=== PATIENT | male | born 1975 | race Caucasian/White ===

== ENCOUNTER 2019-11-26 12:34 | Emergency (ER) | payer MEDICAID ==
--- NOTE | 2019-11-26 12:58 | EDM.PDOC ---
ED HPI GENERAL MEDICAL PROBLEM - General Chief Complaint: Chest Pain Stated Complaint: CHEST PAIN, NUMBNESS IN HANDS AND FEET Time Seen by Provider: 11/26/19 12:54 Source of Information: Reports: Patient History Limitations: Reports: No Limitations - History of Present Illness INITIAL COMMENTS - FREE TEXT/NARRATIVE: pt arrived with pain on both sides when he takes a deep breath. Pt fell shortly after marquise ans he has had some numbness in his feet and pain in his lower back . he now hurts when he takes a deep breath. pt took aspirin 500 mg at home as he usually does each day. He has not taken any meds for nearly 1 year. He has no insurance so he can,t get his meds. Onset: Other ( started on . ) Duration: Hour(s): Location: Reports: Chest, Back Associated Symptoms: Reports: Chest Pain, Shortness of Breath, Weakness, Other ( tingling in his legs. ) Chest Pain Score (Numeric/FACES): 6 - Related Data Allergies Allergy/AdvReac Type Severity Reaction Status Date / Time No Known Allergies Allergy Verified 11/26/19 12:46 Home Meds: Home Meds Aspirin 500 mg PO DAILY 11/26/19 [History] Carvedilol [Coreg] 3.125 mg PO DAILY 11/26/19 [History] Clopidogrel [Plavix] 75 mg PO DAILY 11/26/19 [History] Insulin Aspart [NovoLOG] 8 unit SQ WITHMEALSANDBED 11/26/19 [History] Insulin Glargine,Hum.Rec.Anlog [Basaglar Kwikpen U-100] 1 unit SQ ASDIRECTED [History] Levothyroxine 75 mcg PO ACBREAKFAST 11/26/19 [History] Lisinopril [Zestril] 10 mg PO DAILY 11/26/19 [History] atorvaSTATin [Lipitor] 20 mg PO BEDTIME 11/26/19 [History] ED ROS GENERAL - Review of Systems Review Of Systems: See Below Constitutional: Reports: No Symptoms HEENT: Reports: No Symptoms Respiratory: Reports: Shortness of Breath, Other (pain with deep breathing. ) Cardiovascular: Reports: Chest Pain, Other (hurts when he takes a deep breath. ) Endocrine: Reports: High Glucose GI/Abdominal: Reports: No Symptoms : Reports: No Symptoms Musculoskeletal: Reports: Neck Pain, Back Pain, Muscle Stiffness Skin: Reports: No Symptoms Neurological: Reports: Tingling, Other (pt has completely numb feet. ) Psychiatric: Reports: Depression, Other (pt has no health insurance and he has been of of his meds for about 1 year. ) Hematologic/Lymphatic: Reports: No Symptoms Free Text/Narrative/Comment: past medical history he has had a stent coronary, he has been out of his meds and not using them for 1 year as he has no insurance. He has a past history of cheema chritian disease. He is hypothyroid, diabetic and in the past was on Insulin, he had a fall about 3 weeks ago. The only med he has had recently is asa 500 mg daily. ED EXAM, GENERAL - Physical Exam Exam: See Below Free Text/Narrative:: pt is having pain in his chest when he takes a deep breath. He has not had his meds since January. He did fall shortly after Marquise. he has gotten weaker recently and he has had pain in his neck and lower back. Exam Limited By: No Limitations General Appearance: Alert, Anxious, Mild Distress Ears: Normal TMs Nose: Normal Inspection Throat/Mouth: Normal Inspection Head: Atraumatic Neck: Normal Inspection Respiratory/Chest: Other (pt is very weak and with activity he does get sob. ) Cardiovascular: Regular Rate, Rhythm GI/Abdominal: Soft, Non-Tender (Male) Exam: Deferred Rectal (Males) Exam: Deferred Back Exam: Normal Inspection Extremities: Normal Inspection Neurological: Alert, Oriented, Normal Cognition Course - Vital Signs Last Recorded V/S: Last Vital Signs Temp 37.1 C 11/26/19 13:28 Pulse 86 11/26/19 16:43 Resp 14 11/26/19 16:08 BP 143/97 H 11/26/19 17:06 Pulse Ox 94 L 11/26/19 16:43 - Orders/Labs/Meds Labs: Laboratory Tests 11/26/19 11/26/19 11/26/19 Range/Units 12:12 12:20 12:20 WBC (4.5-11.0) K/uL RBC (4.30-5.90) M/uL Hgb (12.0-15.0) g/dL Hct (40.0-54.0) % MCV (80-98) fL MCH (27-31) pg MCHC (32-36) % Plt Count (150-400) K/uL Neut % (Auto) (36-66) % Lymph % (Auto) (24-44) % Porter % (Auto) (2-6) % Eos % (Auto) (2-4) % Baso % (Auto) (0-1) % D-Dimer, Quantitative < 100 (0.0-400.0) ng/mL Sodium (140-148) mmol/L Potassium (3.6-5.2) mmol/L Chloride (100-108) mmol/L Carbon Dioxide (21-32) mmol/L Anion Gap (5.0-14.0) mmol/L BUN (7-18) mg/dL Creatinine (0.8-1.3) mg/dL Est Cr Clr Drug Dosing mL/min Estimated GFR (MDRD) (>60) Glucose (74-106) mg/dL Calcium (8.5-10.1) mg/dL Total Bilirubin (0.2-1.0) mg/dL AST (15-37) U/L ALT (12-78) U/L Alkaline Phosphatase (46-116) U/L Troponin I (0.000-0.056) ng/mL C-Reactive Protein 0.18 (0.0-0.3) mg/dL NT-Pro-B Natriuret Pep 25 (5-125) pg/mL Total Protein (6.4-8.2) g/dL Albumin (3.4-5.0) g/dL Globulin (2.3-3.5) g/dL Albumin/Globulin Ratio (1.2-2.2) TSH, Ultra Sensitive (0.358-3.740) uIU/mL Urine Color (YELLOW) Urine Appearance (CLEAR) Urine pH (5.0-8.0) Ur Specific [place] (1.008-1.030) Urine Protein (NEGATIVE) mg/dL Urine Glucose (UA) (NEGATIVE) mg/dL Urine Ketones (NEGATIVE) mg/dL Urine Occult Blood (NEGATIVE) Urine Nitrite (NEGATIVE) Urine Bilirubin (NEGATIVE) Urine Urobilinogen (0.2-1.0) EU/dL Ur Leukocyte Esterase (NEGATIVE) Urine RBC (0-5) Urine WBC (0-5) Ur Epithelial Cells Amorphous Sediment Urine Bacteria Urine Mucus Urine Opiates Screen (NEGATIVE) Ur Oxycodone Screen (NEGATIVE) Urine Methadone Screen (NEGATIVE) Ur Propoxyphene Screen (NEGATIVE) Ur Barbiturates Screen (NEGATIVE) Ur Tricyclics Screen (NEGATIVE) Ur Phencyclidine Scrn (NEGATIVE) Ur Amphetamine Screen (NEGATIVE) U Methamphetamines Scrn (NEGATIVE) Urine MDMA Screen (NEGATIVE) U Benzodiazepines Scrn (NEGATIVE) U Cocaine Metab Screen (NEGATIVE) U Marijuana (THC) Screen (NEGATIVE) 11/26/19 11/26/19 11/26/19 Range/Units 12:53 12:53 12:53 WBC 7.6 (4.5-11.0) K/uL RBC 5.56 (4.30-5.90) M/uL Hgb 15.5 H (12.0-15.0) g/dL Hct 44.0 (40.0-54.0) % MCV 79 L (80-98) fL MCH 28 (27-31) pg MCHC 35 (32-36) % Plt Count 249 (150-400) K/uL Neut % (Auto) 64 (36-66) % Lymph % (Auto) 30 (24-44) % Porter % (Auto) 6 (2-6) % Eos % (Auto) 0 L (2-4) % Baso % (Auto) 0 (0-1) % D-Dimer, Quantitative (0.0-400.0) ng/mL Sodium 128 L (140-148) mmol/L Potassium 3.4 L (3.6-5.2) mmol/L Chloride 89 L (100-108) mmol/L Carbon Dioxide 28 (21-32) mmol/L Anion Gap 14.4 H (5.0-14.0) mmol/L BUN 11 (7-18) mg/dL Creatinine 1.3 (0.8-1.3) mg/dL Est Cr Clr Drug Dosing 59.57 mL/min Estimated GFR (MDRD) > 60 (>60) Glucose 469 H* (74-106) mg/dL Calcium 9.4 (8.5-10.1) mg/dL Total Bilirubin 0.7 (0.2-1.0) mg/dL AST 70 H (15-37) U/L ALT 97 H (12-78) U/L Alkaline Phosphatase 218 H (46-116) U/L Troponin I < 0.017 (0.000-0.056) ng/mL C-Reactive Protein (0.0-0.3) mg/dL NT-Pro-B Natriuret Pep (5-125) pg/mL Total Protein 8.5 H (6.4-8.2) g/dL Albumin 3.7 (3.4-5.0) g/dL Globulin 4.8 H (2.3-3.5) g/dL Albumin/Globulin Ratio 0.8 L (1.2-2.2) TSH, Ultra Sensitive (0.358-3.740) uIU/mL Urine Color (YELLOW) Urine Appearance (CLEAR) Urine pH (5.0-8.0) Ur Specific [place] (1.008-1.030) Urine Protein (NEGATIVE) mg/dL Urine Glucose (UA) (NEGATIVE) mg/dL Urine Ketones (NEGATIVE) mg/dL Urine Occult Blood (NEGATIVE) Urine Nitrite (NEGATIVE) Urine Bilirubin (NEGATIVE) Urine Urobilinogen (0.2-1.0) EU/dL Ur Leukocyte Esterase (NEGATIVE) Urine RBC (0-5) Urine WBC (0-5) Ur Epithelial Cells Amorphous Sediment Urine Bacteria Urine Mucus Urine Opiates Screen (NEGATIVE) Ur Oxycodone Screen (NEGATIVE) Urine Methadone Screen (NEGATIVE) Ur Propoxyphene Screen (NEGATIVE) Ur Barbiturates Screen (NEGATIVE) Ur Tricyclics Screen (NEGATIVE) Ur Phencyclidine Scrn (NEGATIVE) Ur Amphetamine Screen (NEGATIVE) U Methamphetamines Scrn (NEGATIVE) Urine MDMA Screen (NEGATIVE) U Benzodiazepines Scrn (NEGATIVE) U Cocaine Metab Screen (NEGATIVE) U Marijuana (THC) Screen (NEGATIVE) 11/26/19 11/26/19 11/26/19 Range/Units 12:58 13:15 13:37 WBC (4.5-11.0) K/uL RBC (4.30-5.90) M/uL Hgb (12.0-15.0) g/dL Hct (40.0-54.0) % MCV (80-98) fL MCH (27-31) pg MCHC (32-36) % Plt Count (150-400) K/uL Neut % (Auto) (36-66) % Lymph % (Auto) (24-44) % Porter % (Auto) (2-6) % Eos % (Auto) (2-4) % Baso % (Auto) (0-1) % D-Dimer, Quantitative (0.0-400.0) ng/mL Sodium (140-148) mmol/L Potassium (3.6-5.2) mmol/L Chloride (100-108) mmol/L Carbon Dioxide (21-32) mmol/L Anion Gap (5.0-14.0) mmol/L BUN (7-18) mg/dL Creatinine (0.8-1.3) mg/dL Est Cr Clr Drug Dosing mL/min Estimated GFR (MDRD) (>60) Glucose (74-106) mg/dL Calcium (8.5-10.1) mg/dL Total Bilirubin (0.2-1.0) mg/dL AST (15-37) U/L ALT (12-78) U/L Alkaline Phosphatase (46-116) U/L Troponin I (0.000-0.056) ng/mL C-Reactive Protein (0.0-0.3) mg/dL NT-Pro-B Natriuret Pep (5-125) pg/mL Total Protein (6.4-8.2) g/dL Albumin (3.4-5.0) g/dL Globulin (2.3-3.5) g/dL Albumin/Globulin Ratio (1.2-2.2) TSH, Ultra Sensitive 148.740 H (0.358-3.740) uIU/mL Urine Color Yellow (YELLOW) Urine Appearance Clear (CLEAR) Urine pH 7.0 (5.0-8.0) Ur Specific [place] 1.020 (1.008-1.030) Urine Protein >=300 H (NEGATIVE) mg/dL Urine Glucose (UA) 500 H (NEGATIVE) mg/dL Urine Ketones Negative (NEGATIVE) mg/dL Urine Occult Blood Moderate H (NEGATIVE) Urine Nitrite Negative (NEGATIVE) Urine Bilirubin Negative (NEGATIVE) Urine Urobilinogen 1.0 (0.2-1.0) EU/dL Ur Leukocyte Esterase Negative (NEGATIVE) Urine RBC 0-5 (0-5) Urine WBC Not seen (0-5) Ur Epithelial Cells Not seen Amorphous Sediment Rare Urine Bacteria Not seen Urine Mucus Not seen Urine Opiates Screen Negative (NEGATIVE) Ur Oxycodone Screen Negative (NEGATIVE) Urine Methadone Screen Negative (NEGATIVE) Ur Propoxyphene Screen Negative (NEGATIVE) Ur Barbiturates Screen Negative (NEGATIVE) Ur Tricyclics Screen Negative (NEGATIVE) Ur Phencyclidine Scrn Negative (NEGATIVE) Ur Amphetamine Screen Negative (NEGATIVE) U Methamphetamines Scrn Negative (NEGATIVE) Urine MDMA Screen Negative (NEGATIVE) U Benzodiazepines Scrn Negative (NEGATIVE) U Cocaine Metab Screen Negative (NEGATIVE) U Marijuana (THC) Screen Negative (NEGATIVE) Meds: Medications Discontinued Medications Generic Name Dose Route Start Last Admin Trade Name Freq PRN Reason Stop Dose Admin Hydromorphone HCl 0.5 mg 11/26/19 16:33 11/26/19 16:40 Dilaudid IVPUSH 11/26/19 16:34 0.5 mg ONETIME ONE Administration Sodium Chloride 1,000 mls @ 999 mls/hr 11/26/19 16:45 11/26/19 16:36 Normal Saline IV 999 mls/hr ASDIRECTED AWILDA Administration Insulin Glargine 10 units 11/26/19 16:28 11/26/19 16:51 Lantus Solostar SUBCUT 11/26/19 16:29 10 units BEDTIME ONE Administration Insulin Human Lispro 5 unit 11/26/19 16:59 11/26/19 17:16 Humalog SUBCUT 11/26/19 17:00 5 units ONETIME ONE Administration Insulin Human Regular 8 unit 11/26/19 14:53 11/26/19 15:01 Humulin R SUBCUT 11/26/19 14:54 8 units ONETIME ONE Administration Levothyroxine Sodium 75 mcg 11/26/19 16:59 11/26/19 17:07 Levothyroxine PO 11/26/19 17:00 75 mcg ONETIME ONE Administration Lisinopril 10 mg 11/26/19 16:58 11/26/19 17:06 Prinivil PO 11/26/19 16:59 10 mg ONETIME ONE Administration - Re-Assessments/Exams Free Text/Narrative Re-Assessment/Exam: 11/26/19 16:47 pt has a tsh greater than 148. He has a bs of 469. He has a na of 128. He had a chest xray which looked ok, He had xrays of his neck and luimbar spine that did not reveal a fracture. Addmission was discussed with Dr Zayas. He felt we should go the outpt route. !1 hour has been spent on arraning various options. Tia did come over and gave him some free materials. He was set up with Dr Guzman for Monday for a primary caregiver appt, Pt was given novolog 8 units and his sugar came down to 375. He was given lantus 10 units and humolog pin 5 units. He was given a liter of fluids, He was given dilaudid .5 iv for discomfort. he was given levothyroxine 75 mcg. He was given perscriptions that he can fill for 5 dollars at [facility]. Departure - Departure Time of Disposition: 17:30 Disposition: Home, Self-Care 01 Condition: Fair Clinical Impression: Hypothyroid, Hyperglycemia, Back pain Instructions: Hypothyroidism, Hyperglycemia, [id number], Chronic Back Pain, [id number] Referrals: Nita Guzman DO [Physician] - 12/02/19 12:30 pm (See [facility] at [address] Guzman) Forms: ED Department Discharge Additional Instructions: Use pens you received from hospital. Call [facility] @ [phone] with questions with blood sugars and insulin coverage. Care Plan Goals: keep appt with Dr Iraheta, resume meds for perscriptions given. All perscriptions can be gotten for 5.00 at [facility]. tylenol for back pain for severe pain norco 5/325 q6h prn # 8, perscriptions given humulog - give 5 units prior to meals. Lantus take 10 units at bedtime, levothyrozine 75 mcg daily, coreg 3.125 take daily, accuchekfast clix lancets, accucheck guide test strips lisinopril 10 mg 1 tab daily, Sepsis Event Note - Focused Exam Date Exam was Performed: 12/01/19 Time Exam was Performed: 00:32
--- NOTE | 2019-11-26 14:18 | CRLCR ---
INDICATION: Shortness of breath. COMPARISON: None. TECHNIQUE: Portable AP chest. FINDINGS: Normal size cardiac silhouette. Clear lung babin with no evidence of acute pneumonic infiltrates or CHF. No pneumothorax or pleural effusion. IMPRESSION: Negative portable AP chest. Dictated by Layne Rodriguez MD @ Nov 26 2019 2:15PM Signed by Dr. Layne Rodriguez @ Nov 26 2019 2:16PM
[2019-11-26] MEDS ORDERED: Insulin Regular, Human 100 Units/ML 3 ML Vial SUBCUT ONE (14:53)
--- NOTE | 2019-11-26 15:28 | CRLCR ---
INDICATION: Right-sided neck pain after fall in September 2019. COMPARISON: None available. FINDINGS: The cervical spine was examined with AP and lateral views for a total of 2 views. There is straightening of the cervical spine which may be the result of muscular spasm or positioning for the examination. The cervical vertebral bodies and disc spaces are normal in height. The vertebral bodies are in anatomic alignment with no sign of fracture or subluxation. The prevertebral soft tissues are normal in appearance with no sign of swelling. The airway structures are normal in appearance. IMPRESSION: Straightening of the cervical spine which may be the result of muscular spasm or positioning for the examination. Otherwise normal cervical spine two views. Dictated by Morro Lakhani MD @ Nov 26 2019 3:25PM Signed by Dr. Morro Lakhani @ Nov 26 2019 3:26PM
--- NOTE | 2019-11-26 15:30 | CRLCR ---
HISTORY: Back pain after fall in September. COMPARISON: None available. FINDINGS: The lumbar spine was examined with AP and lateral views for a total of two views. There is no sign of fracture or subluxation. The vertebral bodies are normal in height and they are in anatomic alignment. The disc spaces are normal in height as well. Clips are seen in the right upper quadrant consistent with cholecystectomy The visualized bony pelvis and bowel gas pattern are normal in appearance. IMPRESSION: Normal lumbar spine. Dictated by Morro Lakhani MD @ Nov 26 2019 3:25PM Signed by Dr. Morro Lakhani @ Nov 26 2019 3:28PM
[2019-11-26] MEDS ORDERED: Insulin Glargine,Human Rec. Analog 100 Units/ML 3 ML Pen SUBCUT ONE (16:28)
[2019-11-26] MEDS ORDERED: HYDROmorphone 0.5 MG/0.5 ML Syringe IVPUSH ONE (16:33)
[2019-11-26] MEDS ORDERED: Sodium Chloride 0.9% 1,000 ML IV SCH (16:45)
[2019-11-26] MEDS ORDERED: Lisinopril 10 MG Tab PO ONE (16:58)
[2019-11-26] MEDS ORDERED: Insulin Lispro 100 Units/ML 3 ML Vial SUBCUT ONE (16:59)
[2019-11-26] MEDS ORDERED: Levothyroxine 25 MCG Tab PO ONE (16:59)
== END 2019-11-26 17:25 | disposition home or self-care (01) ==
LOC: EEVIPCON 12:34 → JP.ED 12:34
DX: E03.9 Hypothyroidism, unspecified (principal); E11.65 Type 2 diabetes mellitus with hyperglycemia; M54.5 Low back pain; Z79.82 Long term (current) use of aspirin; Z79.890 Hormone replacement therapy; Z79.4 Long term (current) use of insulin
CPT/HCPCS: 36415; 71045; 72040; 72100; 80053; 80305; 81001; 82962; 83880; 84443; 84484; 85025; 85379; 86140; 93005; 96361; 96374; 99285; A9270; J1170; J1815; J7030

== ENCOUNTER 2019-11-28 18:41 | Emergency (ER) | payer MEDICAID ==
[2019-11-28] MEDS ORDERED: 50% Dextrose in Water 50 ML Syringe IVPUSH ONE (19:02)
[2019-11-28] MEDS ORDERED: 50% Dextrose in Water 50 ML Syringe ONE (19:04)
[2019-11-28] MEDS ORDERED: Sodium Chloride 0.9% 1,000 ML IV ONE (19:04)
[2019-11-28] MEDS ORDERED: Sodium Chloride 0.9% 10 ML Syringe FLUSH PRN (19:05)
--- NOTE | 2019-11-28 19:18 | EDM.PDOC ---
ED HPI GENERAL MEDICAL PROBLEM - General Chief Complaint: General Stated Complaint: PASSED OUT Time Seen by Provider: 11/28/19 18:58 Source of Information: Reports: Family History Limitations: Reports: Altered Mental Status - History of Present Illness INITIAL COMMENTS - FREE TEXT/NARRATIVE: Patient is brought by family from home after being unresponsive, shaking, sweating since approximately 1600 hrs. He has moved to this area from [place]. He was seen in this department earlier in the week and had multiple medications restarted for the first time in a year according to family members. This afternoon he took a dose of some kind of insulin around 1500, dose unknown, and later on developed the symptoms that are described today. His temperature is in the mid 80s tympanic and heart rate is in the 40s. 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 He is not communicative at this time. Bulk of the history is obtained from family members. Onset: Sudden Onset Date: 11/28/19 Onset Time: 16:00 Duration: Hour(s): (3) Location: Reports: Generalized Severity: Severe Improves with: Reports: None Worsens with: Reports: None Associated Symptoms: Reports: Confusion, Seizure, Weakness - Related Data Allergies Allergy/AdvReac Type Severity Reaction Status Date / Time No Known Allergies Allergy Verified 11/26/19 12:46 Home Meds: Home Meds Aspirin 500 mg PO DAILY 11/26/19 [History] Carvedilol [Coreg] 3.125 mg PO DAILY 11/26/19 [History] Clopidogrel [Plavix] 75 mg PO DAILY 11/26/19 [History] Insulin Aspart [NovoLOG] 0 unit SQ WITHMEALSANDBED 11/26/19 [History] Insulin Glargine,Hum.Rec.Anlog [Basaglar Kwikpen U-100] 1 unit SQ ASDIRECTED [History] Levothyroxine 75 mcg PO ACBREAKFAST 11/26/19 [History] Lisinopril [Zestril] 10 mg PO DAILY 11/26/19 [History] atorvaSTATin [Lipitor] 20 mg PO BEDTIME 11/26/19 [History] Past Medical History HEENT History: Reports: Impaired Vision Cardiovascular History: Reports: High Cholesterol, Hypertension, [place], Stents Gastrointestinal History: Reports: Chronic Constipation, Other (See Below) Other Gastrointestinal History: inguinal hernia Genitourinary History: Reports: Renal Calculus Musculoskeletal History: Reports: Arthritis Endocrine/Metabolic History: Reports: Diabetes, Type II, Hypothyroidism Hematologic History: Reports: Anemia, Anticoagulation Therapy Immunologic History: Reports: Other (See Below) Other Immunologic History: cheema restorationist disease, - Past Surgical History Head Surgeries/Procedures: Reports: None Cardiovascular Surgical History: Reports: Coronary Artery Stent GI Surgical History: Reports: Cholecystectomy Male Surgical History: Reports: Renal Calculus, Ureteral Stent Endocrine Surgical History: Reports: None Musculoskeletal Surgical History: Reports: None Dermatological Surgical History: Reports: None Social & Family History - Caffeine Use Caffeine Use: Reports: Coffee ED ROS GENERAL - Review of Systems Review Of Systems: Unable To Obtain Reason Not Obtained: Altered mental status. ED EXAM, GENERAL - Physical Exam Exam: See Below Exam Limited By: Altered Mental Status General Appearance: Obtunded, Moderate Distress, Other (He has periodic rhythmic body movements but nothing that looks like an actual seizure.) Throat/Mouth: Normal Inspection Head: Other (The patient has alopecia and is hairless.) Neck: Normal Inspection Respiratory/Chest: No Respiratory Distress Cardiovascular: Regular Rate, Rhythm, Bradycardia GI/Abdominal: Soft Neurological: Disoriented, Unresponsive, Other (Shaking muscles throughout his body, likely a response to his low core temperature.) Skin Exam: Diaphoretic EKG INTERPRETATION EKG Date: 11/28/19 Rhythm: NSR Rate (Beats/Min): 43 [place]: Normal P-Wave: Present QRS: Normal ST-T: Normal QT: Prolonged Comparison: NA - No Prior EKG Course - Vital Signs Last Recorded V/S: Last Vital Signs Temp 35.1 C L 11/28/19 20:16 Pulse 60 11/28/19 21:16 Resp 9 L 11/28/19 21:16 BP 118/83 11/28/19 21:16 Pulse Ox 97 11/28/19 21:16 - Orders/Labs/Meds Orders: Active Orders 24 hr Category Date Time Status Accu Check [Blood Glucose Check, Bedside] [RC] ONETIME Care 11/28/19 19:25 Inactive EKG Documentation Completion [RC] ASDIRECTED Care 11/28/19 19:04 Ordered POC Glucose [Blood Glucose Check, Bedside] [RC] ONETIME Care 11/28/19 19:27 Inactive Sodium Chloride 0.9% [Saline Flush] Med 11/28/19 19:05 Ordered 10 ml FLUSH ASDIRECTED PRN Saline Lock Insert [OM.PC] Routine Oth 11/28/19 19:05 Ordered EKG 12 Lead [EK] Routine Ther 11/28/19 19:04 Ordered Medication Orders Sodium Chloride (Saline Flush) 10 ml FLUSH ASDIRECTED PRN PRN Reason: Keep Vein Open Labs: Laboratory Tests 11/28/19 11/28/19 Range/Units 19:23 19:23 WBC (4.5-11.0) K/uL RBC (4.30-5.90) M/uL Hgb (12.0-15.0) g/dL Hct (40.0-54.0) % MCV (80-98) fL MCH (27-31) pg MCHC (32-36) % Plt Count (150-400) K/uL Neut % (Auto) (36-66) % Lymph % (Auto) (24-44) % [place] % (Auto) (2-6) % Eos % (Auto) (2-4) % Baso % (Auto) (0-1) % Sodium 136 L (140-148) mmol/L Potassium 3.1 L (3.6-5.2) mmol/L Chloride 98 L (100-108) mmol/L Carbon Dioxide 24 (21-32) mmol/L Anion Gap 17.1 H (5.0-14.0) mmol/L BUN 18 D (7-18) mg/dL Creatinine 1.2 (0.8-1.3) mg/dL Est Cr Clr Drug Dosing 66.92 mL/min Estimated GFR (MDRD) > 60 (>60) Glucose 57 L (74-106) mg/dL Calcium 9.0 (8.5-10.1) mg/dL Total Bilirubin 0.3 D (0.2-1.0) mg/dL AST 91 H (15-37) U/L ALT 87 H (12-78) U/L Alkaline Phosphatase 199 H (46-116) U/L Troponin I < 0.017 (0.000-0.056) ng/mL Total Protein 8.2 (6.4-8.2) g/dL Albumin 3.5 (3.4-5.0) g/dL Globulin 4.7 H (2.3-3.5) g/dL Albumin/Globulin Ratio 0.7 L (1.2-2.2) Lipase 113 (73-393) U/L Meds: Medications Generic Name Dose Route Start Last Admin Trade Name Kalen PRN Reason Stop Dose Admin Sodium Chloride 10 ml 11/28/19 19:05 Saline Flush FLUSH ASDIRECTED PRN Keep Vein Open Discontinued Medications Generic Name Dose Route Start Last Admin Trade Name Kalen PRN Reason Stop Dose Admin Dextrose/Water 50 ml 11/28/19 19:02 11/28/19 19:18 Dextrose 50% In Water IVPUSH 11/28/19 19:03 50 ml ONETIME ONE Administration Dextrose/Water Confirm 11/28/19 19:04 11/28/19 19:18 Dextrose 50% In Water Administered 11/28/19 19:05 Not Given Dose 50 ml .ROUTE .STK-MED ONE Sodium Chloride 1,000 mls @ 999 mls/hr 11/28/19 19:04 11/28/19 19:18 Normal Saline IV 11/28/19 20:04 999 mls/hr .BOLUS ONE Administration - Re-Assessments/Exams Free Text/Narrative Re-Assessment/Exam: 11/28/19 19:07 A fingerstick glucose shows a value of 46. IV access has been obtained and he will receive a liter of normal saline wide open along with 25 g of dextrose as an IV bolus. His temperature on arrival was 84F and heart rate was in the mid 40s. A Marian Hugger was applied and warm saline was infused. 11/28/19 21:20 Recheck of glucose 45 minutes after receiving 50% dextrose showed a value of 143. Patient had some purposeful movements but was still not really communicative. Later check glucose showed it to be 150. He eventually was alert and talking to family. His last memory of events today was giving 6 or 8 units of NovoLog insulin around 1500 hrs. Food was not available to eat for another hour. In the ensuing time he developed a hypoglycemic episode. He denies having these in the past. He restarted multiple medications 2 days ago. He thinks he may be using his glargine insulin as well. His carvedilol is listed as being dosed 3.12 mg once a day. I discussed with him and with family that that may have been masking some of the hypoglycemic symptoms but but patient felt and family witnessed today was a significant hypoglycemic episode. Prior to his becoming more alert, family states that the patient has done what he wants to regarding use of medications and diet. When family would attempt to he could become quite angry with them. He has a follow-up clinic appointment scheduled when he was here 2 days ago, on Monday, 02 December. He will be given some food here and will recheck a fingerstick glucose 1 more time. He feels significantly better and family thinks he is pretty much back to baseline. 11/28/19 21:27 11/28/19 21:36 Final glucose before discharge was 181. I again reinforced the need to get some structure and discipline into his life. He was discharged in significantly improved condition. Departure - Departure Time of Disposition: 21:40 Disposition: Home, Self-Care 01 Condition: Good Clinical Impression: Hypoglycemia, Obtundation Diabetes mellitus Qualifiers: Diabetes mellitus type: type 2 Diabetes mellitus halfway insulin use: with termite technician use Diabetes mellitus complication status: with hypoglycemia Diabetes mellitus complication detail: with coma Qualified Code(s): E11.641 - Type 2 diabetes mellitus with hypoglycemia with coma - Discharge Information *PRESCRIPTION DRUG MONITORING PROGRAM REVIEWED*: Not Applicable *COPY OF PRESCRIPTION DRUG MONITORING REPORT IN PATIENT CHACHO: Not Applicable Instructions: Hypoglycemia, [id number] Referrals: Nita Guzman DO [Primary Care Provider] - Forms: ED Department Discharge Additional Instructions: He need to establish a regular schedule of eating throughout the day. When you take your NovoLog, you should have your syringe dose in one hand and your eating utensil in the other, meaning that when you give the insulin you should begin to eat. It may be beneficial to change the timing of when you take certain medications but that can be reviewed at your clinic visit next week. They can also arrange to have a secure software assessor review where you're at in management of your diabetes. If you feel worse in anyway, return to this department. Sepsis Event Note - Evaluation Sepsis Screening Result: No Definite Risk - Focused Exam Vital Signs: Vital Signs Temp Pulse Resp BP Pulse Ox 11/28/19 21:16 60 9 L 118/83 97 11/28/19 20:55 52 L 12 135/91 H 97 11/28/19 20:16 35.1 C L 52 L 11 L 121/91 H 93 L 11/28/19 19:30 30.1 C L 53 L 12 140/95 H 98 11/28/19 19:03 29.3 C L 43 L 14 101/76 99 Date Exam was Performed: 11/28/19 Time Exam was Performed: 21:41 - My Orders Last 24 Hours: My Active Orders 11/28/19 19:04 EKG Documentation Completion [RC] ASDIRECTED EKG 12 Lead [EK] Routine 11/28/19 19:05 Sodium Chloride 0.9% [Saline Flush] 10 ml FLUSH ASDIRECTED PRN Saline Lock Insert [OM.PC] Routine 11/28/19 19:25 Accu Check [Blood Glucose Check, Bedside] [RC] ONETIME 11/28/19 19:27 POC Glucose [Blood Glucose Check, Bedside] [RC] ONETIME - Assessment/Plan Last 24 Hours: My Active Orders 11/28/19 19:04 EKG Documentation Completion [RC] ASDIRECTED EKG 12 Lead [EK] Routine 11/28/19 19:05 Sodium Chloride 0.9% [Saline Flush] 10 ml FLUSH ASDIRECTED PRN Saline Lock Insert [OM.PC] Routine 11/28/19 19:25 Accu Check [Blood Glucose Check, Bedside] [RC] ONETIME 11/28/19 19:27 POC Glucose [Blood Glucose Check, Bedside] [RC] ONETIME
== END 2019-11-28 21:44 | disposition home or self-care (01) ==
LOC: JP.ED 18:41
DX: E11.641 Type 2 diabetes mellitus with hypoglycemia with coma (principal); I10 Essential (primary) hypertension; I25.2 Old myocardial infarction; E03.9 Hypothyroidism, unspecified; E78.00 Pure hypercholesterolemia, unspecified; Z79.82 Long term (current) use of aspirin; Z79.890 Hormone replacement therapy; Z79.899 Other long term (current) drug therapy; Z79.4 Long term (current) use of insulin
CPT/HCPCS: 36415; 80053; 82962; 83690; 84484; 85025; 93005; 96361; 96374; 99285; J7030

== ENCOUNTER 2021-10-17 09:19 | Emergency (ER) | payer MEDICAID ==
[2021-10-17] MEDS ORDERED: Ibuprofen 600 MG Tab PO ONE (10:16)
[2021-10-17] MEDS ORDERED: Ketorolac 30 MG/ML SDV IM ONE (11:03)
[2021-10-17 11:12] LABS: CORONAVIRUS COVID-19 NAA NEGATIVE (NEGATIVE)
[2021-10-17] MEDS ORDERED: Insulin Regular, Human 100 Units/ML 3 ML Vial SUBCUT ONE (11:59)
[2021-10-17] MEDS ORDERED: 50% Dextrose in Water 50 ML Syringe IVPUSH PRN (11:59)
[2021-10-17] MEDS ORDERED: Glucagon,Human Recombinant 1 MG Vial IM PRN (11:59)
[2021-10-17] MEDS ORDERED: cefTRIAXone 1 GM in Sodium Chloride 0.9% 50 ML IV ONE (12:00)
[2021-10-17] MEDS ORDERED: Sodium Chloride 0.9% 1,000 ML IV SCH (12:00)
[2021-10-17] MEDS ORDERED: HYDROmorphone 0.5 MG/0.5 ML Syringe IVPUSH ONE (12:01)
--- NOTE | 2021-10-17 12:04 | EDM.PDOC ---
ED HPI GENERAL MEDICAL PROBLEM - General Chief Complaint: Respiratory Problem Stated Complaint: FALL-10/13/21 Time Seen by Provider: 10/17/21 12:02 Source of Information: Reports: Patient History Limitations: Reports: No Limitations - History of Present Illness INITIAL COMMENTS - FREE TEXT/NARRATIVE: pt is a known diabetic since age 26. He fell 2 days ago. He did not have alot o ff pain at first but is now very tight in the shoulder and has a fever. Onset: Gradual Duration: Day(s): Location: Reports: Chest, Back Associated Symptoms: Reports: No Other Symptoms right arm and right chest Pain Score (Numeric/FACES): 10 - Related Data Allergies Allergy/AdvReac Type Severity Reaction Status Date / Time No Known Allergies Allergy Verified 10/17/21 09:48 Home Meds: Home Meds Clopidogrel [Plavix] 75 mg PO DAILY 11/26/19 [History] Insulin Aspart [NovoLOG] 8 unit SQ WITHMEALSANDBED 11/26/19 [History] Insulin Glargine,Hum.Rec.Anlog [Basaglar Kwikpen U-100] 1 unit SQ ASDIRECTED 11/26/19 [History] atorvaSTATin [Lipitor] 20 mg PO BEDTIME 11/26/19 [History] carvediloL [Coreg] 3.125 mg PO DAILY 11/26/19 [History] lisinopriL [Zestril] 10 mg PO DAILY 11/26/19 [History] Aspirin [Halfprin] 81 mg PO DAILY 10/17/21 [History] Gabapentin [Neurontin] 400 mg PO TID 10/17/21 [History] Levothyroxine Sodium [Euthyrox] 100 mcg PO DAILY 10/17/21 [History] Liraglutide [Victoza 3-Adiel] 18 mg SUBCUT ASDIRECTED 10/17/21 [History] metFORMIN [Glucophage XR] 500 mg PO DAILY 10/17/21 [History] Past Medical History HEENT History: Reports: Impaired Vision Cardiovascular History: Reports: High Cholesterol, Hypertension, [place], Stents Gastrointestinal History: Reports: Chronic Constipation, Other (See Below) Other Gastrointestinal History: inguinal hernia Genitourinary History: Reports: Renal Calculus Musculoskeletal History: Reports: Arthritis Endocrine/Metabolic History: Reports: Diabetes, Type II, Hypothyroidism Hematologic History: Reports: Anemia, Anticoagulation Therapy Immunologic History: Reports: Other (See Below) Other Immunologic History: cheema orthodox disease, - Infectious Disease History Infectious Disease History: Reports: Chicken Pox - Past Surgical History Head Surgeries/Procedures: Reports: None Cardiovascular Surgical History: Reports: Coronary Artery Stent GI Surgical History: Reports: Cholecystectomy Male Surgical History: Reports: Renal Calculus, Ureteral Stent Endocrine Surgical History: Reports: None Musculoskeletal Surgical History: Reports: None Dermatological Surgical History: Reports: None Social & Family History - Tobacco Use Tobacco Use Status *Q: Never Tobacco User - Caffeine Use Caffeine Use: Reports: Coffee - Recreational Drug Use Recreational Drug Use: No ED ROS GENERAL - Review of Systems Review Of Systems: See Below Constitutional: Reports: Other (pain in rt chest. ) HEENT: Reports: No Symptoms Respiratory: Reports: Shortness of Breath, Cough Cardiovascular: Reports: No Symptoms Endocrine: Reports: High Glucose GI/Abdominal: Reports: No Symptoms : Reports: No Symptoms Musculoskeletal: Reports: Other (pain in rt post cervical area. ) Skin: Reports: No Symptoms Neurological: Reports: No Symptoms Psychiatric: Reports: Anxiety ED EXAM, GENERAL - Physical Exam Exam: See Below Free Text/Narrative:: pt fell 2-3 days ago. He did not have alot of pain at first. He has now tightened up in post cervical area. He is having pain when he takes a ddep breath. Exam Limited By: No Limitations General Appearance: Alert, Anxious, Moderate Distress Ears: Normal TMs Nose: Normal Inspection Throat/Mouth: Normal Inspection Head: Atraumatic Neck: Tender Lateral, Other ( Much muscle spasm on the left. ) Respiratory/Chest: Other (pain with deep breathing. ) Cardiovascular: Regular Rate, Rhythm GI/Abdominal: Soft, Non-Tender (Male) Exam: Deferred Rectal (Males) Exam: Deferred Back Exam: Normal Inspection Extremities: Normal Inspection Course - Vital Signs Last Recorded V/S: Last Vital Signs Temp 37.4 C 10/17/21 11:46 Pulse 88 10/17/21 11:46 Resp 26 H 10/17/21 11:46 BP 121/85 10/17/21 11:46 Pulse Ox 93 L 10/17/21 11:46 - Orders/Labs/Meds Orders: Active Orders 24 hr Category Date Time Status Chest 2V [CR] Stat Exams 10/17/21 10:15 Taken Dextrose 50% in Water Med 10/17/21 11:59 Active 50 ml IVPUSH ASDIRECTED PRN Glucagon,Human Recombinant [GlucaGen] Med 10/17/21 11:59 Active 1 mg IM ASDIRECTED PRN Sodium Chloride 0.9% [Normal Saline] 1,000 ml Med 10/17/21 12:00 Active IV ASDIRECTED Isolation [COMM] Stat Oth 10/17/21 10:14 Ordered Medication Orders Dextrose/Water (50% Dextrose In Water 50 Ml Syringe) 50 ml IVPUSH ASDIRECTED PRN PRN Reason: Hypoglycemia Glucagon (Glucagon,Human Recombinant 1 Mg Vial) 1 mg IM ASDIRECTED PRN PRN Reason: Hypoglycemia Sodium Chloride (Normal Saline) 1,000 mls @ 999 mls/hr IV ASDIRECTED AWILDA Last Admin: 10/17/21 12:17 Dose: 999 mls/hr Documented by: PREILOR Labs: Laboratory Tests 10/17/21 10/17/21 10/17/21 Range/Units 10:27 10:30 10:30 WBC 11.1 H (4.5-11.0) K/uL RBC 5.27 (4.30-5.90) M/uL Hgb 14.5 (12.0-15.0) g/dL Hct 43.8 (40.0-54.0) % MCV 83 (80-98) fL MCH 28 (27-31) pg MCHC 33 (32-36) % Plt Count 239 (150-400) K/uL Neut % (Auto) 81.9 H (36-66) % Lymph % (Auto) 8.4 L (24-44) % [place] % (Auto) 9.6 H (2-6) % Eos % (Auto) 0.0 L (2-4) % Baso % (Auto) 0.1 (0-1) % Sodium 131 L (140-148) mmol/L Potassium 4.4 (3.6-5.2) mmol/L Chloride 94 L (100-108) mmol/L Carbon Dioxide 24 (21-32) mmol/L Anion Gap 17.4 H (5.0-14.0) mmol/L BUN 17 (7-18) mg/dL Creatinine 1.2 (0.8-1.3) mg/dL Est Cr Clr Drug Dosing 69.11 mL/min Estimated GFR (MDRD) > 60 (>60) Glucose 305 H (74-106) mg/dL Calcium 9.5 (8.5-10.1) mg/dL Total Bilirubin 1.1 H D (0.2-1.0) mg/dL AST 17 D (15-37) U/L ALT 41 (12-78) U/L Alkaline Phosphatase 144 H (46-116) U/L Total Protein 8.8 H (6.4-8.2) g/dL Albumin 3.6 (3.4-5.0) g/dL Globulin 5.2 H (2.3-3.5) g/dL Albumin/Globulin Ratio 0.7 L (1.2-2.2) Influenza Type A RNA Negative (NEGATIVE) RSV RNA (INAAT) Negative (NEGATIVE) Influenza Type B RNA Negative (NEGATIVE) SARS-CoV-2 RNA (ELAINA) Negative (NEGATIVE) Meds: Medications Generic Name Dose Route Start Last Admin Trade Name Elliottq PRN Reason Stop Dose Admin Dextrose/Water 50 ml 10/17/21 11:59 50% Dextrose In Water 50 Ml Syringe IVPUSH ASDIRECTED PRN Hypoglycemia Glucagon 1 mg 10/17/21 11:59 Glucagon,Human Recombinant 1 Mg Vial IM ASDIRECTED PRN Hypoglycemia Sodium Chloride 1,000 mls @ 999 mls/hr 10/17/21 12:00 10/17/21 12:17 Normal Saline IV 999 mls/hr ASDIRECTED AWILDA Administration Discontinued Medications Generic Name Dose Route Start Last Admin Trade Name Elliottq PRN Reason Stop Dose Admin Hydromorphone HCl 0.5 mg 10/17/21 12:01 10/17/21 12:19 Hydromorphone 0.5 Mg/0.5 Ml Syringe IVPUSH 10/17/21 12:02 0.5 mg ONETIME ONE Administration Ceftriaxone Sodium 1 gm/ 50 mls @ 100 mls/hr 10/17/21 12:00 10/17/21 12:22 Sodium Chloride IV 10/17/21 12:29 100 mls/hr ONETIME ONE Administration Ibuprofen 600 mg 10/17/21 10:16 10/17/21 10:25 Ibuprofen 600 Mg Tab PO 10/17/21 10:17 600 mg ONETIME ONE Administration Insulin Human Regular 5 unit 10/17/21 11:59 10/17/21 12:23 Insulin Regular, Human 100 Units/Ml 3 Ml Vial SUBCUT 10/17/21 12:00 5 units ONETIME ONE Administration Ketorolac Tromethamine 30 mg 10/17/21 11:03 10/17/21 12:18 Ketorolac 30 Mg/Ml Sdv IM 10/17/21 11:04 30 mg ONETIME ONE Administration - Re-Assessments/Exams Free Text/Narrative Re-Assessment/Exam: 10/17/21 13:13 pt had no shoulder of spine tenderness. He had muscle spadm in the rt post cervical area. His chest xray showed a early infiltrate in the rt lung base. His wbc was mildly elevated. He was given a liter of fluid, 5 units of subq insulin. Departure - Departure Time of Disposition: 12:59 Disposition: Home, Self-Care 01 Condition: Fair Clinical Impression: Cervical paraspinal muscle spasm, Pneumonia - Discharge Information Referrals: Nita Guzman DO [Primary Care Provider] - Forms: ED Department Discharge Care Plan Goals: soak in a tub, moist packs to rt post cervical area, push fluids, follow sugars closely, zithromax 500mg now and then 250 daily for 6 days, flexeril 10 mg 1/2 tab qam and 1 tab hs. norco 5/325 q6h prn for pain # 10. rtc if not doing well. incentive sprimeter Sepsis Event Note (ED) - Evaluation Sepsis Screening Result: Possible Sepsis Risk - Focused Exam Vital Signs: Vital Signs Temp Temp Pulse Resp BP Pulse Ox 10/17/21 11:46 37.4 C 88 26 H 121/85 93 L 10/17/21 10:25 38.3 C H 10/17/21 09:43 38.3 C H 76 38 H 152/93 H 95 - My Orders Last 24 Hours: My Active Orders 10/17/21 10:14 Isolation [COMM] Stat 10/17/21 10:15 Chest 2V [CR] Stat 10/17/21 11:59 Dextrose 50% in Water 50 ml IVPUSH ASDIRECTED PRN Glucagon,Human Recombinant [GlucaGen] 1 mg IM ASDIRECTED PRN 10/17/21 12:00 Sodium Chloride 0.9% [Normal Saline] 1,000 ml IV ASDIRECTED - Assessment/Plan Last 24 Hours: My Active Orders 10/17/21 10:14 Isolation [COMM] Stat 10/17/21 10:15 Chest 2V [CR] Stat 10/17/21 11:59 Dextrose 50% in Water 50 ml IVPUSH ASDIRECTED PRN Glucagon,Human Recombinant [GlucaGen] 1 mg IM ASDIRECTED PRN 10/17/21 12:00 Sodium Chloride 0.9% [Normal Saline] 1,000 ml IV ASDIRECTED
--- NOTE | 2021-10-18 11:54 | CR ---
CHEST: 2 view CLINICAL HISTORY:Chest pain and breathing, fever COMPARISON:2020 FINDINGS: There is mild elevation of the right hemidiaphragm. There is patchy opacity in the right lower lobe. This is likely combination of infiltrate and some atelectasis. There is some generalized increase in the interstitial markings bilaterally.. Impression: Interval elevation right hemidiaphragm suggesting some volume loss in the right lung base Right basilar infiltrate suggests pneumonia Generalized increase in the lung markings may represent a pneumonitis
== END 2021-10-17 13:57 | disposition home or self-care (01) ==
LOC: JP.ED 09:19
DX: J18.9 Pneumonia, unspecified organism (principal); M62.830 Muscle spasm of back; I10 Essential (primary) hypertension; I25.2 Old myocardial infarction; E78.00 Pure hypercholesterolemia, unspecified; E11.9 Type 2 diabetes mellitus without complications; E03.9 Hypothyroidism, unspecified; Z90.49 Acquired absence of other specified parts of digestive tract; Z79.4 Long term (current) use of insulin; Z79.899 Other long term (current) drug therapy; Z79.82 Long term (current) use of aspirin; Z20.822 Contact with and (suspected) exposure to COVID-19
CPT/HCPCS: 0241U; 36415; 71046; 80053; 85025; 96365; 96372; 96375; 99283; A9270; J0696; J1170; J1885; J7030; J1815-GY

== ENCOUNTER 2025-02-10 05:59 | Day surgery (SDC) | payer MEDICAID ==
[2025-02-10] MEDS ORDERED: Lidocaine 1% 50 ML MDV ONE (06:46)
[2025-02-10] MEDS ORDERED: Bupivacaine 0.5%/EPINEPHrine 1:200,000 50 ML MDV ONE (06:46)
[2025-02-10] MEDS: Lactated Ringers 1,000 ML IV SCH (06:52)
[2025-02-10] MEDS ORDERED: Rocuronium 50 MG/5 ML Vial ONE (07:23)
[2025-02-10] MEDS ORDERED: Dexamethasone 4 MG/ML SDV ONE (07:23)
[2025-02-10] MEDS ORDERED: Propofol 200 MG/20 ML SDV ONE (07:23)
[2025-02-10] MEDS ORDERED: Glycopyrrolate 0.2 MG/ML 5 ML MDV ONE (07:23)
[2025-02-10] MEDS ORDERED: Ondansetron 4 MG/2 ML SDV ONE (07:23)
[2025-02-10] MEDS ORDERED: fentaNYL 250 MCG/5 ML SDV ONE (07:23)
[2025-02-10] MEDS ORDERED: Neostigmine Methylsulfate 10 MG/10 ML MDV ONE (07:23)
[2025-02-10] MEDS ORDERED: Sugammadex Sodium 200 MG/2 ML VIAL IV ONE (08:33)
[2025-02-10] MEDS ORDERED: Naloxone 0.4 MG/ML SDV IVPUSH PRN (09:38)
[2025-02-10] MEDS: HYDROmorphone 0.5 MG/0.5 ML Syringe IVPUSH ONE (09:45)
== END 2025-02-10 10:45 | disposition home or self-care (01) ==
LOC: JP.SDS 05:59
PROVIDERS: ATTEND Surgery
DX: K62.89 Other specified diseases of anus and rectum (principal); E10.9 Type 1 diabetes mellitus without complications; E78.00 Pure hypercholesterolemia, unspecified; I10 Essential (primary) hypertension; E03.9 Hypothyroidism, unspecified; I25.10 Atherosclerotic heart disease of native coronary artery without angina pectoris; Z79.899 Other long term (current) drug therapy; Z79.890 Hormone replacement therapy
CPT/HCPCS: 00902-QZ; J0690; J1100; J1596; J2003; J2405; J2704; J2710; J3010; J3490; J7120

== ENCOUNTER 2025-03-02 14:38 | Emergency (ER) | payer MEDICAID | END 2025-03-02 15:25 | disposition home or self-care (01) | LOC: JP.ED 14:38 | DX: K04.7 Periapical abscess without sinus (principal) | CPT/HCPCS: 99282 ==

== ENCOUNTER 2025-08-05 06:21 | Observation (INO) | payer MEDICAID ==
[2025-08-05] MEDS ORDERED: fentaNYL 250 MCG/5 ML SDV ONE (07:12)
[2025-08-05 07:13] LABS: PLATELET COUNT,PLT 216.0 K/uL (130-375); RED BLOOD CELL COUNT 5.68 M/uL (4.14-5.76); WHITE BLOOD CELL COUNT,WBC 8.7 K/uL (3.2-11.0)
[2025-08-05] MEDS ORDERED: Propofol 200 MG/20 ML SDV ONE (07:13)
[2025-08-05] MEDS ORDERED: Ondansetron 4 MG/2 ML SDV ONE (07:13)
[2025-08-05 07:21] LABS: BLOOD UREA NITROGEN,BUN 13.0 mg/dL (7-18); CARBON DIOXIDE,CO2 23.0 mmol/L (21-32); CHLORIDE,CL 102.0 mmol/L (100-108); CREATININE 1.1 mg/dL (0.8-1.3); EST CRCL DRUG DOSING (CG) 74.92 mL/min; ESTIMATED GFR 83.0 mL/min (>60); GLUCOSE RANDOM 218.0 mg/dL (74-106); POTASSIUM,K 5.0 mmol/L (3.6-5.2); SODIUM,NA 136.0 mmol/L (140-148)
[2025-08-05] MEDS: Bupivacaine 0.25%/EPINEPHrine 1:200,000 30 ML SDV ONE (08:33)
[2025-08-05] MEDS ORDERED: Insulin Regular, Human 100 Units/ML 10 ML Vial IV ONE (09:30)
[2025-08-05 10:22] LABS: PHOSPHORUS 3.2 mg/dL (2.5-4.9); PRO B-TYPE NATRIUR PEPT,BNPPRO 168.0 pg/mL (5-125)
[2025-08-05 10:43] LABS: BLOOD UREA NITROGEN,BUN 13.0 mg/dL (7-18); CARBON DIOXIDE,CO2 23.0 mmol/L (21-32); CHLORIDE,CL 103.0 mmol/L (100-108); CREATININE 1.3 mg/dL (0.8-1.3); EST CRCL DRUG DOSING (CG) 63.39 mL/min; ESTIMATED GFR 68.0 mL/min (>60); GLUCOSE RANDOM 235.0 mg/dL (74-106); POTASSIUM,K 5.9 mmol/L (3.6-5.2); SODIUM,NA 135.0 mmol/L (140-148)
[2025-08-05] MEDS: Lactated Ringers 1,000 ML IV SCH (11:06)
[2025-08-05] MEDS: Insulin Regular, Human 100 Units/ML 10 ML Vial IV ONE (11:36)
[2025-08-05] MEDS ORDERED: 50% Dextrose in Water 50 ML Syringe IVPUSH PRN (13:20)
[2025-08-05] MEDS: Ondansetron 4 MG/2 ML SDV IVPUSH PRN (13:34)
[2025-08-05 13:46] LABS: BLOOD UREA NITROGEN,BUN 12.0 mg/dL (7-18); CARBON DIOXIDE,CO2 26.0 mmol/L (21-32); CHLORIDE,CL 101.0 mmol/L (100-108); CREATININE 1.2 mg/dL (0.8-1.3); EST CRCL DRUG DOSING (CG) 68.67 mL/min; ESTIMATED GFR 75.0 mL/min (>60); GLUCOSE RANDOM 248.0 mg/dL (74-106); POTASSIUM,K 4.7 mmol/L (3.6-5.2); SODIUM,NA 136.0 mmol/L (140-148)
[2025-08-05] MEDS: Insulin Lispro 100 Unit/ML 3 ML KwikPen SUBCUT SCH (18:10)
[2025-08-06 05:54] LABS: BASOPHILS PERCENT AUTO 0.0 % (0.1-1.3); EOSINOPHILS PERCENT AUTO 0.0 % (0.0-5.4); IMMATURE GRAN PERCENT AUTO 0.2 % (0.0-0.7); LYMPHOCYTES ABSOLUTE AUTO 1.66 K/uL (0.8-3.3); LYMPHOCYTES PERCENT AUTO 27.3 % (11.4-47.7); MONOCYTES ABSOLUTE AUTO 0.51 K/uL (0.20-0.90); MONOCYTES PERCENT AUTO 8.4 % (3.3-12.6); NEUTROPHILS ABSOLUTE AUTO 3.89 K/uL (1.0-7.6); NEUTROPHILS PERCENT AUTO 64.1 % (40.0-78.1); PLATELET COUNT,PLT 193 K/uL (130-375); RED BLOOD CELL COUNT 4.84 M/uL (4.14-5.76); WHITE BLOOD CELL COUNT,WBC 6.1 K/uL (3.2-11.0)
[2025-08-06 06:02] LABS: BASOPHILS ABSOLUTE AUTO 0.00 K/uL (0.00-0.10); EOSINOPHILS ABSOLUTE AUTO 0.00 K/uL (0.00-0.40); IMMATURE GRAN ABSOLUTE AUTO 0.01 K/uL (0.00-0.23)
[2025-08-06 06:13] LABS: BLOOD UREA NITROGEN,BUN 10.0 mg/dL (7-18); CARBON DIOXIDE,CO2 28.0 mmol/L (21-32); CHLORIDE,CL 103.0 mmol/L (100-108); CREATININE 1.0 mg/dL (0.8-1.3); EST CRCL DRUG DOSING (CG) 82.41 mL/min; ESTIMATED GFR 93.0 mL/min (>60); GLUCOSE RANDOM 214.0 mg/dL (74-106); POTASSIUM,K 4.3 mmol/L (3.6-5.2); SODIUM,NA 138.0 mmol/L (140-148)
[2025-08-06] MEDS ORDERED: Non-Formulary Medication 1 Each (Metformin [Glucophage Xr] 500 MG Tab.Er) PO SCH (09:00)
== END 2025-08-06 13:45 | disposition home or self-care (01) ==
LOC: JP.SDS 06:21 → JP.MS 11:25
PROVIDERS: ADMIT Surgery; ATTEND Surgery
DX: E87.5 Hyperkalemia (principal); I10 Essential (primary) hypertension; E10.8 Type 1 diabetes mellitus with unspecified complications; E05.90 Thyrotoxicosis, unspecified without thyrotoxic crisis or storm; I25.10 Atherosclerotic heart disease of native coronary artery without angina pectoris; Z88.8 Allergy status to other drugs, medicaments and biological substances; Z79.899 Other long term (current) drug therapy
CPT/HCPCS: 00830-QZ; 36415; 80048; 82947; 83735; 83880; 84100; 84132; 85025; 85027; 93005; 96365; 96375; 99231; 99232; 99238; A9270-GY; C1781; G0378; J0690; J1171; J2003; J2405; J2550; J2704; J2765; J3010; J3490; J7120